=== PATIENT | male | born 1990 | race Caucasian/White ===

== ENCOUNTER 2024-07-20 18:59 | Inpatient (IN) | payer SELFPAY ==
[~2024-07-20] VITALS: Ht 182.9 cm; Wt 78.9 kg
[2024-07-20 19:05] VITALS: O2SAT 98
[2024-07-20 20:00] VITALS: BP 90/56; PULSE 96; RESP 18; TEMP 36.5
[2024-07-20 20:18] LABS: CHLORIDE 103 mEq/L (98-107); POTASSIUM 3.5 mEq/L (3.5-5.1); SODIUM 139 mEq/L (136-145)
[2024-07-20 20:19] LABS: CALCIUM 9.2 mg/dL (8.7-10.4); CARBON DIOXIDE 27 mEq/L (21-32)
[2024-07-20 20:24] LABS: CREATININE 1.3 mg/dL (0.6-1.3); GLUCOSE 74 mg/dL (70-105); UREA NITROGEN BLOOD 15 mg/dL (9-23)
[2024-07-20 20:25] LABS: ETHANOL BLOOD < 10 mg/dL (<10)
[2024-07-20 20:26] LABS: ACETAMINOPHEN < 2 ug/mL (10-30)
[2024-07-20] MEDS: SODIUM CHLORIDE 0.9% 1,000 ML IV ONE (23:06)
[2024-07-21] VITALS: BP 90/56; PULSE 105; RESP 18; TEMP 36.8; O2SAT 96
[2024-07-21] MEDS ORDERED: ACETAMINOPHEN 325MG TABLET PO PRN (02:30)
[2024-07-21] MEDS ORDERED: DIPHENHYDRAMINE 50MG/ML VIAL IV PRN (02:30)
[2024-07-21] MEDS ORDERED: ONDANSETRON HCL 4MG/2ML INJ IV PRN (02:30)
[2024-07-21] MEDS: ACETAMINOPHEN 325MG TABLET PO PRN (02:40)
[2024-07-21] MEDS: MVI, ADULT NO.1 10 ML, FOLIC ACID 1 MG, THIAMINE HCL 100 MG in SODIUM CHLORIDE 0.9% 1,0... IV SCH (03:30)
[2024-07-21 04:00] VITALS: BP 100/47; PULSE 99; RESP 15; TEMP 36.8; O2SAT 88
[2024-07-21] MEDS: SODIUM CHLORIDE 0.9% 3ML FLUSH IVF SCH (06:00)
[2024-07-21 08:00] VITALS: BP 97/58; PULSE 97; TEMP 36.6; O2SAT 97
[2024-07-21 10:14] VITALS: BP 102/63; O2SAT 97
== END 2024-07-21 10:43 | disposition left against medical advice (07) | DRG 52 ==
LOC: ER 18:59 → 5WST 22:56
PROVIDERS: ADMIT Internal Medicine; ATTEND Internal Medicine
DX: G92.8 Other toxic encephalopathy (principal); F31.9 Bipolar disorder, unspecified; F41.1 Generalized anxiety disorder; Z79.899 Other long term (current) drug therapy; Z53.29 Procedure and treatment not carried out because of patient's decision for other reasons
CPT/HCPCS: 36415; 80048; 80307; 80320; 80329; 82962; 93005; 99285; A4606; J3411; J3490; J7030; G0480